=== PATIENT | male | born 2005 | race Caucasian/White ===

== ENCOUNTER 2024-07-03 20:57 | Emergency (ER) | payer SELFPAY ==
--- NOTE | ~2024-07-03 | XR_ITS ---
EXAMINATION: XR clavicle LT DATE: 07/03/2024 21:39 INDICATION: Left arm pain and inability to lift the arm post fall TECHNIQUE: AP and 10 degree cephalad angled AP views of the left clavicle were obtained. COMPARISON: none FINDINGS: Oblique fracture at the junction of the mid to lateral third of the left clavicle. There is one shaft width caudal displacement of the lateral fragment or there is also a 3 cm of overriding. N ormal alignment and joint space at the left glenohumeral and acromioclavicular joints as well as at t he bilateral sternoclavicular articulations. Soft tissues are unremarkable. Visualized portions of th e lungs are clear. IMPRESSION: 1. Displaced left clavicle diaphyseal fracture with 3 cm overriding. Reviewed, dictated and finalized at location A.
[2024-07-03 21:29] VITALS: BP 109/50; PULSE 66; RESP 17; TEMP 36.7; O2SAT 99
[2024-07-03] MEDS: HYDROcodone/acetaminophen (*CRX) 5-325 MG TABLET 1 TAB PO (21:45)
[2024-07-03] MEDS: KETOROLAC (*BKC) 60 MG/2 ML VIAL IM (21:45)
--- NOTE | 2024-07-03 23:02 | ED.UPPEXIN ---
HPI - Extremity Injury (Upper) General Chief Complaint: Extremity Injury, Upper Stated Complaint: shoulder pain Time Seen by Provider: 07/03/24 21:41 History of Present Illness HPI narrative: Patient is a 19-year-old male who presents to the ER after sustaining clavicle injury. He reports he caught a ball and landed on his left shoulder. Patient reports his pain is better after being medicated. He reports no medical history that is pertinent to this visit. Patient denies chest pain, shortness a breath, other signs of illness. Related Data Allergies Allergy/AdvReac Type Severity Reaction Status Date / Time Sulfa (Sulfonamide Allergy Unknown Verified 07/03/24 20:59 Antibiotics) Review of Systems Review of Systems: All systems reviewed & are unremarkable except as noted in HPI and below Exam Narrative: GENERAL: Well appearing, well-nourished, non-toxic, in no acute distress. HEAD: Normocephalic, atraumatic. NECK: Supple. No adenopathy, no masses. Visible and palpable clavicular fracture. Pt unable to tolerate manipulation of his L shoulder. RESPIRATORY: Airway patent, respirations nonlabored. Clear to auscultation bilaterally, no rales, rhonchi, wheezing. CARDIOVASCULAR: Regular rate and rhythm without murmurs, rubs, or gallops. Peripheral pulses 2+ and equal bilaterally. ABDOMINAL: Soft, nontender, nondistended, no hepatosplenomegaly. Normoactive BS. MUSCULOSKELETAL: Moves all extremities except for L shoulder. Strength/ROM intact in three other extremities. SKIN: Warm, dry, normal color. No rashes. NEURO: A&O X3. Speech clear. Cranial nerves II-XII grossly intact. No ataxic movements. PSYCHIATRIC: Appropriate mood and affect. Normal interaction. Course Vital Signs Vital signs: Vital Signs Temperature 36.7 C 07/03/24 21:29 Pulse Rate 66 07/03/24 21:29 Respiratory Rate 17 07/03/24 21:29 Blood Pressure 109/50 L 07/03/24 21:29 Pulse Oximetry 99 07/03/24 21:29 Oxygen Delivery Room Air 07/03/24 21:29 Temperature 36.7 C 07/03/24 21:29 Pulse Rate 66 07/03/24 21:29 Respiratory Rate 17 07/03/24 21:29 Blood Pressure 109/50 L 07/03/24 21:29 Pulse Oximetry 99 07/03/24 21:29 Oxygen Delivery Room Air 07/03/24 21:29 MDM - Extremity Injury (Upper) MDM Narrative Medical decision making narrative: Patient is a 19-year-old male who presents to the ER after sustaining clavicle injury. He reports he caught a ball and landed on his left shoulder. Patient reports his pain is better after being medicated. He reports no medical history that is pertinent to this visit. Patient denies chest pain, shortness a breath, other signs of illness. Pt's x-ray showed displaced left clavicle diaphyseal fracture with 3 cm overriding. Orthopedics was consulted and they have no further recommendations besides follow-up with them. Patient will be discharged home with pain medication. Differential Diagnosis Differential diagnosis: Likely dislocation of shoulder and fracture of clavicle Imaging Data Attestation: I personally reviewed and interpreted this imaging study as follows: Radiologist's impression: Impressions Clavicle X-Ray 07/03/24 22:02 IMPRESSION: 1. Displaced left clavicle diaphyseal fracture with 3 cm overriding. Discharge Plan Discharge Clinical Impression: Fracture of clavicle Patient Disposition: Home, Self-Care Condition: Stable Instructions: Antibiotic Form, Clavicle Fracture (ED), How to Use a Sling (ED) Additional Instructions: Please wear your sling. Follow up with Orthopedic surgery. Take pain medication as prescribed. Prescriptions: New hydrocodone-acetaminophen 5-325 mg tablet 1 tablet PO Q6H PRN (Reason: pain) Qty: 10 0RF Follow-up/Referrals: PHYSICIAN NOT ON STAFF,NONSTAFF [Primary Care Provider] - Time of Disposition: 23:09
[2024-07-04] MEDS: HYDROcodone/acetaminophen (*CRX) 5-325 MG TABLET 1 TAB PO (00:01)
[2024-07-04 00:13] VITALS: BP 118/75; PULSE 84; RESP 16; TEMP 36.8; O2SAT 99
== END 2024-07-04 00:03 | disposition home or self-care (01) ==
PROVIDERS: Emergency Provider Registered Nurse
DX: S42.022A Displaced fracture of shaft of left clavicle, initial encounter for closed fracture (principal); W19.XXXA Unspecified fall, initial encounter
CPT/HCPCS: 73000; 96372; 99283; A4565; A9270; J1885